=== PATIENT | male | born 1965 | race Caucasian/White ===

== ENCOUNTER 2017-05-09 13:45 | Emergency (ER) | payer SELFPAY ==
[2017-05-09 14:19] VITALS: BP 155/95; PULSE 81; RESP 16; TEMP 98.8; O2SAT 96
[2017-05-09] MEDS ORDERED: IBUP-1129 (14:32)
[2017-05-09] MEDS ORDERED: CYCL5TAB PO (14:32)
[2017-05-09] MEDS ORDERED: IBUP1TAB7 PO (15:10)
[2017-05-09] MEDS ORDERED: ROBA750T PO (15:10)
--- NOTE | 2017-05-09 15:14 | PD ---
HPI Chief Complaint: Back/ Neck Pain or Injury Time Seen by Provider: 14:56 Travel History International Travel<30 days: No Contact w/Intl Traveler<30days: No Traveled to known affect area: No History of Present Illness HPI 51-year-old male here with right low back pain and muscle spasms ongoing for 1 week. Symptoms are slightly improved with ibuprofen. He has a history of chronic back pain reports occasional muscle spasms and flares. He reports this feels similar. Denies fever, chills, no incontinence, no saddle anesthesia, no paresthesia or weakness of the extremity is. Pain is made worse with movement and slightly relieved with rest and ibuprofen PFSH Past Medical History Medical History: Denies Significant Hx Social History Tobacco Use: No Allergies-Medications (Allergen,Severity, Reaction): Coded Allergies: No Known Allergies (Verified Allergy, Unknown, 05/09/17) Reported Meds & Prescriptions Reported Meds & Active Scripts Active Ibuprofen 800 Mg Tab 800 Mg PO Q6HR PRN Robaxin (Methocarbamol) 750 Mg Tab 750 Mg PO QID Reported Motrin Ib (Ibuprofen) 200 Mg Tablet 400 Q6HR Flexeril (Cyclobenzaprine HCl) 5 Mg Tab 5 Mg PO DIRECTED Review of Systems Except as stated in HPI: all other systems reviewed are Neg General / Constitutional: No: Fever Eyes: No: Visual changes HENT: No: Headaches Cardiovascular: No: Chest Pain or Discomfort Respiratory: No: Shortness of Breath Gastrointestinal: No: Abdominal Pain Genitourinary: No: Dysuria Physical Exam Narrative GENERAL: Alert well-appearing 51-year-old male. Patient grimaces in pain when he twists or flex forward with his back SKIN: Warm and dry. HEAD: Atraumatic. Normocephalic. EYES: No injection or drainage. NECK: Supple CARDIOVASCULAR: Regular rate and rhythm. RESPIRATORY: No accessory muscle use. Clear to auscultation. Breath sounds equal bilaterally. GASTROINTESTINAL: Abdomen soft, non-tender, nondistended. MUSCULOSKELETAL: Extremities without clubbing, cyanosis, or edema. NEUROLOGICAL: Awake and alert. Motor grossly within normal limits. Five out of 5 muscle strength in the arms and legs. Inability with a steady gait BACK:No point tenderness on palpation of the spine. +TTP right lumbar paraspinous musculature with muscle spasm Data Data Last Documented VS Vital Signs Date Time Temp Pulse Resp B/P (MAP) Pulse Ox O2 Delivery O2 Flow Rate FiO2 05/09/17 14:19 98.8 81 16 155/95 (115) 96 Orders Orders Ketorolac Inj (Toradol Inj) (05/09/17 15:15) Diazepam (Valium) (05/09/17 15:15) MDM Medical Decision Making Medical Screen Exam Complete: Yes Emergency Medical Condition: Yes Differential Diagnosis Lumbar strain, herniated disc, DJD Narrative Course 51-year-old female here with right lumbar strain and muscle spasm. He has a normal neurologic exam. He is given a shot of Toradol and Valium. On reassessment patient reports symptom improvement. He is stable and ready for discharge Diagnosis Primary Impression: Lumbar strain Qualified Codes: S39.012A - Strain of muscle, fascia and tendon of lower back , initial encounter Referrals: Primary Care Physician Departure Forms: Tests/Procedures, Work Release Enter return to work date: May 11, 2017 Special Instructions: No bending. No lifting for one week Additional Instructions: Medication as directed. Follow up with her primary doctor. Return if he developed new or worsening symptoms. Scripts Ibuprofen (Ibuprofen) 800 Mg Tab 800 MG PO Q6HR Y for PAIN, #40 TAB 0 Refills Prov: Kelley Hopper 05/09/17 Methocarbamol (Robaxin) 750 Mg Tab 750 MG PO QID for Muscle Spasm, #14 TAB 0 Refills Prov: Kelley Hopper 05/09/17 Disposition: 01 DISCHARGE HOME Condition: Stable Kelley Hopper May 09, 2017 15:14
[2017-05-09] MEDS ORDERED: KETOROLAC TROMETHAMINE 60 MG/2 ML (IM) VIAL IM ONE (15:15)
[2017-05-09] MEDS ORDERED: DIAZEPAM 5 MG TAB PO ONE (15:15)
== END 2017-05-09 15:49 | disposition home or self-care (01) ==
LOC: NEPK 13:45
DX: S39.012A Strain of muscle, fascia and tendon of lower back, initial encounter (principal); X58.XXXA Exposure to other specified factors, initial encounter
CPT/HCPCS: 96372; 99283; J1885